=== PATIENT | female | born 1970 | race Hispanic/Latino ===

== ENCOUNTER 2018-12-07 20:06 | Emergency (ER) | payer SELFPAY ==
[2018-12-07 21:55] LABS: #Eosinphils 0.2 thou/uL (0.0-0.7); #Monocytes 0.6 thou/uL (0.11-0.59); #Neutrophils 5.1 thou/uL (1.40-6.50); %Basophils 0.3 % (0.0-1.0); %Eosinophils 2.7 % (0.0-10.0); %Lymphocytes 33.2 % (21.0-51.0); %Monocytes 6.8 % (0.0-10.0); %Neutrophils 57.1 % (42.0-75.0); Hemoglobin 12.9 g/dL (12.0-16.0); Mean Corpuscular HGB CONC 33.7 g/dL (32.0-36.0); Mean Corpuscular Hemoglobin 29.8 pg (27.0-31.0); Mean Corpuscular Volume 88.5 fL (78.0-98.0); Mean Platelet Volume 8.2 fL (7.4-10.4); Platelet Count 258 thou/uL (130-400); RBC Distribution Width 12.9 % (11.5-14.5); Red Blood Cell (RBC) Count 4.34 mill/uL (4.20-5.40); White Blood Cell (WBC) Count 8.9 thou/uL (4.8-10.8)
[2018-12-07] MEDS ORDERED: Ketorolac Tromethamine 60 MG/2 ML VIAL ONE (21:57)
[2018-12-07] MEDS ORDERED: Methocarbamol 500 MG TAB PO SCH (22:15)
[2018-12-07 22:16] LABS: ALT (SGPT) 17 U/L (8-55); AST (SGOT) 15 U/L (5-34); Albumin 4.1 g/dL (3.5-5.0); Alkaline Phosphatase 105 U/L (40-150); Anion Gap 12 mmol/L (10-20); BUN (Urea Nitrogen) 14 mg/dL (7.0-18.7); Bilirubin, Total 0.2 mg/dL (0.2-1.2); Calcium 9.6 mg/dL (7.8-10.44); Carbon Dioxide 25 mmol/L (22-29); Chloride 106 mmol/L (98-107); Globulin 3.7 g/dL (2.4-3.5); Glucose 101 mg/dL (70-105); Potassium 3.7 mmol/L (3.5-5.1); Protein, Total 7.8 g/dL (6.0-8.3); Sodium 139 mmol/L (136-145)
[2018-12-07 22:20] LABS: Calc. Creatinine Clearance 0 mL/min (70-130); Estimated GFR-MDRD 84
--- NOTE | 2018-12-08 00:41 | RAD ---
3 views right shoulder. Reba Kruse. Date of 1970. HISTORY: Right shoulder pain. AP internally, externally scapular Y views right shoulder obtained. No evidence of acute fractures, subluxations or bony lesion seen. IMPRESSION: Unremarkable 3 views right shoulder.
--- NOTE | 2018-12-08 00:41 | RAD ---
3 views left shoulder. HISTORY: Left shoulder pain. Reba Kruse date of 1970. AP internally, externally scapular Y views left shoulder demonstrate no evidence of left shoulder fra ctures, subluxations or bony lesions. IMPRESSION: Normal 3 views left shoulder.
== END 2018-12-08 01:10 | disposition home or self-care (01) ==
LOC: ERS 20:06
DX: M25.512 Pain in left shoulder (principal); M25.511 Pain in right shoulder; M79.604 Pain in right leg
CPT/HCPCS: 36415; 80053; 83880; 84484; 85025; 93005; 96372; J1885

== ENCOUNTER 2021-06-08 08:59 | Emergency (ER) | payer SELFPAY ==
[2021-06-08] MEDS ORDERED: Boostrix 0.5 ML (Tdap) VIAL ONE ×2 (09:44→10:08)
[2021-06-08] MEDS ORDERED: HYDROcodone/Acetaminophen 5/325 mg Tablet ONE (10:08)
== END 2021-06-08 11:05 | disposition home or self-care (01) ==
LOC: ERS 08:59
DX: S93.401A Sprain of unspecified ligament of right ankle, initial encounter (principal); M50.20 Other cervical disc displacement, unspecified cervical region; W19.XXXA Unspecified fall, initial encounter
CPT/HCPCS: 36416; 70450; 72125; 90471; 90715

== ENCOUNTER 2021-07-28 15:51 | Emergency (ER) | payer SELFPAY ==
[2021-07-28] MEDS ORDERED: Acetaminophen 500 MG TAB ONE (16:14)
[2021-07-28 23:37] LABS: SARS-CoV-2 PCR by NAA DETECTED (NotDetected)
== END 2021-07-28 17:40 | disposition home or self-care (01) ==
LOC: ERS 15:51
DX: U07.1 COVID-19 (principal)
CPT/HCPCS: 71045; U0003; U0005

== ENCOUNTER 2023-04-01 10:01 | Emergency (ER) | payer OTHER, SELFPAY ==
[2023-04-01 10:54] LABS: #Eosinphils 0.2 thou/uL (0.0-0.7); #Monocytes 0.5 thou/uL (0.11-0.59); #Neutrophils 5.7 thou/uL (1.40-6.50); %Basophils 0.2 % (0.0-1.0); %Eosinophils 2.2 % (0.0-10.0); %Lymphocytes 28.2 % (21.0-51.0); %Monocytes 5.9 % (0.0-10.0); %Neutrophils 63.2 % (42.0-75.0); Hematocrit 42.8 % (36.0-47.0); Hemoglobin 14.1 g/dL (12.0-16.0); Mean Corpuscular HGB CONC 32.9 g/dL (32.0-36.0); Mean Corpuscular Hemoglobin 29.1 pg (27.0-31.0); Mean Corpuscular Volume 88.4 fl (78.0-98.0); Mean Platelet Volume 11.2 fL (7.4-10.4); Platelet Count 264 10x3/uL (130-400); RBC Distribution Width 13.5 % (11.5-14.5); Red Blood Cell (RBC) Count 4.84 mill/uL (4.20-5.40)
[2023-04-01 11:25] LABS: Troponin I Less than 0.010 ng/mL (< 0.028)
[2023-04-01 11:39] LABS: ALT (SGPT) 19 U/L (8-55); AST (SGOT) 42 U/L (5-34); Alkaline Phosphatase 117 U/L (40-110); Anion Gap 13 mmol/L (10-20); BUN (Urea Nitrogen) 13 mg/dL (9.8-20.1); Bilirubin, Total 0.3 mg/dL (0.2-1.2); Calc. Creatinine Clearance 0 mL/min (70-130); Calcium 9.1 mg/dL (7.8-10.44); Carbon Dioxide 25 mmol/L (22-29); Chloride 103 mmol/L (98-107); Estimated GFR 104; Globulin 4.8 g/dL (2.4-3.5); Glucose 96 mg/dL (70-105); Lipase 13 U/L (8-78); Potassium 5.7 mmol/L (3.5-5.1); Protein, Total 8.8 g/dL (6.0-8.3); Sodium 135 mmol/L (136-145)
[2023-04-01] MEDS ORDERED: Aspirin Chewable 81 MG TAB ONE (11:53)
[2023-04-01 14:08] LABS: Anion Gap 11 mmol/L (10-20); BUN (Urea Nitrogen) 13 mg/dL (9.8-20.1); Calc. Creatinine Clearance 0 mL/min (70-130); Carbon Dioxide 25 mmol/L (22-29); Chloride 106 mmol/L (98-107); Estimated GFR 106; Glucose 76 mg/dL (70-105); Potassium 3.6 mmol/L (3.5-5.1); Sodium 138 mmol/L (136-145)
== END 2023-04-01 14:31 | disposition home or self-care (01) ==
LOC: ERS 10:01
DX: R07.9 Chest pain, unspecified (principal)
CPT/HCPCS: 36415; 71045; 80053; 83690; 84484; 85025; 93005

== ENCOUNTER 2025-03-17 07:51 | Emergency (ER) | payer SELFPAY | END 2025-03-17 09:56 | disposition home or self-care (01) | LOC: ERS 07:51 | DX: U07.1 COVID-19 (principal); E11.9 Type 2 diabetes mellitus without complications; I10 Essential (primary) hypertension | CPT/HCPCS: 71045; 87428 ==

== ENCOUNTER 2025-06-08 00:05 | Emergency (ER) | payer BC, SELFPAY ==
[2025-06-08] MEDS ORDERED: diphenhydrAMINE 50 MG/ML VIAL ONE (01:13)
[2025-06-08] MEDS ORDERED: Metoclopramide HCl 10 MG (2 mL) VIAL ONE (01:13)
[2025-06-08 01:53] LABS: #Basophils Less than 0.03 10x3/uL (0.0-0.2); #Eosinophils 0.28 10x3/uL (0.0-0.7); #Monocytes 0.33 10x3/uL (0.11-0.59); #Neutrophils 6.68 10x3/uL (1.40-6.50); %Basophils 0.1 % (0.0-1.0); %Eosinophils 3.2 % (0.0-10.0); %Lymphocytes 16.1 % (21.0-51.0); %Monocytes 3.8 % (0.0-10.0); %Neutrophils 76.6 % (42.0-75.0); Hematocrit 38.9 % (36.0-47.0); Hemoglobin 12.4 g/dL (12.0-16.0); Mean Corpuscular Hemoglobin 27.9 pg (27.0-31.0); Mean Corpuscular Volume 87.6 fL (78.0-98.0); Platelet Count 222 10x3/uL (130-400); Red Blood Cell (RBC) Count 4.44 mill/uL (4.20-5.40); White Blood Cell (WBC) Count 8.72 10x3/uL (4.8-10.8)
[2025-06-08 01:58] LABS: Bacteria/HPF None Seen HPF (None Seen); CAUTI Indications for Culture Alt mental st,lethar; Glucose, Urine (Dipstick) Normal (Negative); Leukocyte 500 Leu/uL (Negative); Protein, Urine (Dipstick) Negative (Neg-Trace); RBC/HPF 0-3 HPF (0-3); Specific Gravity, Urine 1.012 (1.002-1.036)
[2025-06-08 01:59] LABS: Urine Culture Reflex Yes Yes
[2025-06-08 02:09] LABS: ALT (SGPT) 15 U/L (Less than 34); AST (SGOT) 22 U/L (11-34); Albumin 3.8 g/dL (3.1-4.5); Alkaline Phosphatase 95 U/L (40-110); Anion Gap 14 mmol/L (10-20); BUN (Urea Nitrogen) 14 mg/dL (9.8-20.1); Bilirubin, Total 0.3 mg/dL (0.3-1.2); Calc. Creatinine Clearance 0 mL/min (70-130); Calcium 8.8 mg/dL (7.8-10.44); Carbon Dioxide 22 mmol/L (22-29); Chloride 106 mmol/L (98-107); Globulin 3.4 g/dL (2.4-3.5); Glucose 98 mg/dL (70-105); Potassium 3.7 mmol/L (3.5-5.1); Sodium 138 mmol/L (136-145)
== END 2025-06-08 03:30 | disposition home or self-care (01) ==
LOC: ERS 00:05
DX: B34.9 Viral infection, unspecified (principal); E11.9 Type 2 diabetes mellitus without complications; I10 Essential (primary) hypertension; R29.700 NIHSS score 0
CPT/HCPCS: 80053; 81001; 85025; 87086; 96365; 96375; J1200; J2765